=== PATIENT | female | born 1980 | race Caucasian/White ===

== ENCOUNTER 2020-11-14 09:48 | Emergency (ER) | payer OTHER ==
[~2020-11-14] VITALS: Ht 170.2 cm; Wt 116.1 kg
[~2020-11-14 09:48] MED LIST: ALDOMET250 MG PO; ATABEX DHA CAP1 EACH PO
[2020-11-14] MEDS ORDERED: CHILDREN'S ASPI81 MG PO (10:10)
[2020-11-14] MEDS ORDERED: LABETALOL HCL100 MG PO (10:10)
== END 2020-11-14 13:37 | disposition home or self-care (01) ==
LOC: ER 09:48
DX: O16.1 Unspecified maternal hypertension, first trimester (principal); Z34.81 Encounter for supervision of other normal pregnancy, first trimester

== ENCOUNTER 2020-12-15 05:45 | Day surgery (SDC) | payer OTHER ==
[~2020-12-15 05:45] MED LIST changes: +ALDOMET250 MG/5 M PO; +CHILDREN'S ASPI81 MG PO; +LABETALOL HCL100 MG PO
== END 2020-12-15 14:25 | disposition home or self-care (01) ==
LOC: CIR.AMB 05:45
PROVIDERS: ATTEND Specialist
DX: O34.31 Maternal care for cervical incompetence, first trimester (principal); Z3A.12 12 weeks gestation of pregnancy; Z20.822 Contact with and (suspected) exposure to COVID-19

== ENCOUNTER 2021-05-11 04:55 | Inpatient (IN) | payer OTHER ==
[~2021-05-11] VITALS: Ht 170.2 cm; Wt 1.4 kg
[2021-05-11] MEDS ORDERED: NIFEDIPINE20 MG (06:58)
[2021-05-11] MEDS ORDERED: [UNRECOGNIZED DRUG - OTHER] PO (06:59)
[2021-05-11] MEDS ORDERED: PRENATAL TABLE1 EAC1 PO (06:59)
[2021-05-11] MEDS ORDERED: FOLIC ACID20 MG PO (07:00)
[2021-05-11] MEDS ORDERED: HUMULIN N100 UNIT/2 (08:43)
[2021-05-11] MEDS ORDERED: TERBUTALINE SU2.5 MG (08:44)
[2021-05-11] MEDS ORDERED: PROAIR HFA8.5 GM (08:44)
[2021-05-11] MEDS ORDERED: METHYLDOPA250 MG (08:44)
[2021-05-11] MEDS ORDERED: INTEGRA PLUS C1 EAC1 (08:44)
== END 2021-05-14 18:10 | disposition home or self-care (01) | DRG 783 ==
LOC: LDR 04:55 → OB/GYN 04:55 → SURG-SUITE 11:28
PROVIDERS: ADMIT Specialist; ATTEND Specialist
PROC: 0UB70ZZ Excision of Bilateral Fallopian Tubes, Open Approach (ICD-10-PCS; 2021-05-11)
PROC: 4A1HXCZ Monitoring of Products of Conception, Cardiac Rate, External Approach (ICD-10-PCS; 2021-05-11)
PROC: 10D00Z1 Extraction of Products of Conception, Low, Open Approach (ICD-10-PCS; principal; 2021-05-11 09:00)
DX: O41.03X0 Oligohydramnios, third trimester, not applicable or unspecified (principal); O60.14X0 Preterm labor third trimester with preterm delivery third trimester, not applicable or unspecified; O24.420 Gestational diabetes mellitus in childbirth, diet controlled; O36.5930 Maternal care for other known or suspected poor fetal growth, third trimester, not applicable or unspecified; O16.4 Unspecified maternal hypertension, complicating childbirth; Z3A.33 33 weeks gestation of pregnancy; Z30.2 Encounter for sterilization; Z37.0 Single live birth; Z20.822 Contact with and (suspected) exposure to COVID-19

== ENCOUNTER 2021-09-20 08:00 | Outpatient (CLI) | payer OTHER ==
[~2021-09-20 08:00] MED LIST changes: +FOLIC ACID20 MG PO; +HUMULIN N100 UNIT/2; +INTEGRA PLUS C1 EAC1; +METHYLDOPA250 MG; +NIFEDIPINE20 MG; +PRENATAL TABLE1 EAC1 PO; +PROAIR HFA8.5 GM; +TERBUTALINE SU2.5 MG; +[UNRECOGNIZED DRUG - OTHER] PO
== END 2021-09-20 08:30 | disposition home or self-care (01) ==
LOC: PPH VACUNA 08:00
PROVIDERS: ATTEND Emergency Medicine Pediatric Emergency Medicine
DX: Z23 Encounter for immunization (principal)

== ENCOUNTER 2024-10-11 11:42 | Inpatient (IN) | payer OTHER ==
[~2024-10-11] VITALS: Ht 170.2 cm; Wt 113.4 kg
[2024-10-11 11:37] VITALS: BP 124/84
[2024-10-11] MEDS ORDERED: VALSARTAN-HCTZ1 EAC3 PO (12:14)
[2024-10-11] MEDS ORDERED: TOPROL XL100 M1 PO (12:14)
[2024-10-11] MEDS ORDERED: AMLODIPINE-OLM1 EAC2 (12:15)
[2024-10-11] MEDS ORDERED: DOXAZOSIN MESYLA2 MG PO (12:15)
[2024-10-11] MEDS ORDERED: METFORMIN HCL500 M3 PO (12:15)
[2024-10-11] MEDS ORDERED: VIT D3-VIT K21 EACH (12:16)
[2024-10-15] MEDS ORDERED: CEFAZOLIN SODIUM 1,000 MG VIAL ONE (12:52)
[2024-10-15] MEDS ORDERED: DEXAMETHASONE SODIUM PHOSPHATE 4 MG/ML VIAL ONE (12:55)
[2024-10-15] MEDS ORDERED: ONDANSETRON HCL 2 MG/ML VIAL IV PRN (15:30)
[2024-10-15] MEDS ORDERED: ENALAPRILAT DIHYDRATE 1.25 MG/ML VIAL IV PRN (15:30)
[2024-10-15] MEDS ORDERED: DEXTROSE 50 % IN WATER 0.5 G/ML VIAL IV PRN (15:45)
[2024-10-15] MEDS ORDERED: INSULIN LISPRO 1,000 UNIT/10 ML UNITS SUBCUTANEO PRN (15:45)
[2024-10-15] MEDS ORDERED: MORPHINE SULFATE 4 MG/ML VIAL IV ONE ×2 (15:55→16:25)
[2024-10-15] MEDS ORDERED: GABAPENTIN 100 MG CAPSULE PO SCH (17:00)
[2024-10-15] MEDS ORDERED: TRAMADOL HCL 50 MG TABLET PO SCH (17:00)
[2024-10-15] MEDS ORDERED: CYCLOBENZAPRINE HCL 5 MG TABLET PO SCH (17:00)
[2024-10-15] MEDS ORDERED: DIPHENHYDRAMINE HCL 150 MG,LIDOCAINE HCL 60 ML,MAG HYDROX/ALUMINUM HYD/SIMETH 60 ML PO SCH (17:00)
[2024-10-15] MEDS ORDERED: ACETAMINOPHEN 500 MG GEL..CAP PO SCH (17:00)
[2024-10-15] MEDS ORDERED: PANTOPRAZOLE SODIUM 40 MG/VIAL VIAL ONE (20:02)
[2024-10-15 20:37] VITALS: BP 153/80; O2SAT 95
[2024-10-15 20:44] VITALS: BP 153/80; O2SAT 95
[2024-10-15] MEDS ORDERED: CYCLOBENZAPRINE HCL 5 MG TABLET PO ONE (21:00)
[2024-10-15] MEDS ORDERED: PANTOPRAZOLE SODIUM 40 MG/VIAL VIAL IV PUSH SCH (21:00)
[2024-10-15] MEDS ORDERED: GABAPENTIN 100 MG CAPSULE PO ONE (21:00)
[2024-10-15] MEDS ORDERED: TRAMADOL HCL 50 MG TABLET PO ONE (21:00)
[2024-10-15] MEDS ORDERED: MAG HYDROX/ALUMINUM HYD/SIMETH 30 ML BLIST.PACK PO ONE (22:40)
[2024-10-16 00:51] VITALS: BP 143/84; O2SAT 100
[2024-10-16] MEDS ORDERED: HYDROCHLOROTHIAZIDE 25 MG TABLET PO SCH (09:00)
[2024-10-16] MEDS ORDERED: AMLODIPINE BESYLATE 5 MG TABLET PO SCH (09:00)
[2024-10-16] MEDS ORDERED: METOPROLOL SUCCINATE 100 MG TAB.SR.24H PO SCH (09:00)
[2024-10-16] MEDS ORDERED: DOXAZOSIN MESYLATE 2 MG TABLET PO SCH (09:00)
== END 2024-10-16 10:35 | disposition home or self-care (01) | DRG 645 ==
LOC: O/R 10-15 06:35 → SURG 10-15 11:45
PROVIDERS: ADMIT Surgery; ATTEND Surgery
DX: C73 Malignant neoplasm of thyroid gland (principal)